=== PATIENT | male | born 1985 | race Caucasian/White ===

== ENCOUNTER 2023-01-17 08:05 | Outpatient (CLI) | payer BC, SELFPAY | END 2023-01-17 08:06 | disposition home or self-care (01) | LOC: NFLDREF 01-20 22:30 | PROVIDERS: PCP Physician Assistant Medical; Referring Provider Physician Assistant Medical; Visit Provider Physician Assistant Medical | DX: Z00.00 Encounter for general adult medical examination without abnormal findings (principal); E66.9 Obesity, unspecified; Z13.6 Encounter for screening for cardiovascular disorders; Z13.1 Encounter for screening for diabetes mellitus; Z13.0 Encounter for screening for diseases of the blood and blood-forming organs and certain disorders involving the immune mechanism | CPT/HCPCS: 80053; 80061 ==

== ENCOUNTER 2025-01-20 13:37 | Outpatient (CLI) | payer BC, SELFPAY | END 2025-01-20 13:38 | disposition home or self-care (01) | PROVIDERS: PCP Physician Assistant Medical; Visit Provider Physician Assistant Medical | DX: Z00.00 Encounter for general adult medical examination without abnormal findings (principal); E66.9 Obesity, unspecified; Z68.33 Body mass index [BMI] 33.0-33.9, adult | CPT/HCPCS: 80053; 80061; 82607; 84443 ==